=== PATIENT | male | born 1950 | race Caucasian/White ===

== ENCOUNTER 2018-08-13 09:03 | Emergency (ER) | payer OTHER ==
[~2018-08-13] VITALS: Ht 188 cm; Wt 106.6 kg
[2018-08-13] MEDS ORDERED: SODIUM CHLORIDE FLUSH 10 ML SYR INJ PRN (09:15)
[2018-08-13 09:17] LABS: BASOPHILS # (AUTO) 0.1 (0.0-0.1); BASOPHILS % 0.7 % (0.0-1.0); EOSINOPHILS # (AUTO) 0.3 (0.0-0.4); EOSINOPHILS % 4.2 % (0.0-6.0); HEMATOCRIT 43.9 % (38.2-49.6); LYMPHOCYTES # (AUTO) 1.9 (1.0-3.2); LYMPHOCYTES % 27.8 % (18.0-39.1); MEAN CORPUSCULAR HEMOGLOBIN 30.2 pg (28-32); MEAN CORPUSCULAR HGB CONC 34.2 g/dL (31-35); MEAN CORPUSCULAR VOLUME 88.3 fL (81-99); MONOCYTES # (AUTO) 0.7 (0.2-0.8); MONOCYTES % 10.3 % (4.4-11.3); NEUTROPHILS # (AUTO) 3.9 (2.1-6.9); NEUTROPHILS % 56.7 % (38.7-80.0); PLATELET COUNT 143 x10e3/uL (140-360); RED BLOOD COUNT 4.97 x10e6/uL (4.3-5.7); RED CELL DISTRIBUTION WIDTH 13.4 % (11.7-14.4)
[2018-08-13] MEDS ORDERED: AMARYL4 MG PO (09:22)
[2018-08-13] MEDS ORDERED: LANTUS 3ML100 UNITS/ SQ (09:22)
[2018-08-13] MEDS ORDERED: OXYCODONE-ACET1 EAC1 PO (09:22)
[2018-08-13] MEDS ORDERED: VENLAFAXINE H37.5 M2 PO (09:22)
[2018-08-13] MEDS ORDERED: DICYCLOMINE HCL20 MG PO (09:22)
[2018-08-13] MEDS ORDERED: BUTALB-ACETAMI1 EACH PO (09:22)
[2018-08-13] MEDS ORDERED: LOSARTAN POTAS100 MG PO (09:22)
[2018-08-13] MEDS ORDERED: AMLODIPINE BESYL5 MG PO (09:22)
[2018-08-13] MEDS ORDERED: BACLOFEN10 MG PO (09:22)
[2018-08-13] MEDS ORDERED: TAMSULOSIN HCL0.4 MG PO (09:22)
[2018-08-13] MEDS ORDERED: CYMBALTA30 MG PO (09:22)
[2018-08-13] MEDS ORDERED: PANTOPRAZOLE SO40 MG PO (09:22)
[2018-08-13] MEDS ORDERED: METOPROLOL SUCC50 MG PO (09:22)
[2018-08-13 09:34] LABS: PARTIAL THROMBOPLASTIN TIME 24.5 seconds (23.8-35.5)
--- NOTE | 2018-08-13 09:40 | Diagnostic Imaging Report ---
EXAMINATION: CHEST SINGLE (PORTABLE) INDICATION: \S\ERMD ORDER \S\[id number] \S\[id number] \S\Y COMPARISON: None FINDINGS: AP view TUBES and LINES: None. LUNGS: Lungs are well inflated. Linear subsegmental atelectasis in the right lower lobe. There is no evidence of pneumonia or pulmonary edema. PLEURA: No pleural effusion or pneumothorax. HEART AND MEDIASTINUM: The cardiomediastinal silhouette is unremarkable.. BONES AND SOFT TISSUES: Partially visualized hardware overlying the cervical spine. Soft tissues are unremarkable. UPPER ABDOMEN: No free air under the diaphragm. IMPRESSION: Mild subsegmental atelectasis in the right lower lobe. Otherwise, unremarkable chest radiograph. Signed by: Dr. Sanaz Casper M.D. on 08/13/2018 9:35 AM
[2018-08-13 09:41] LABS: ALANINE AMINOTRANSFERASE 30 IU/L (0-55); ALBUMIN 3.6 g/dL (3.5-5.0); ALBUMIN/GLOBULIN RATIO 1.2 (0.8-2.0); ALKALINE PHOSPHATASE 69 IU/L (40-150); ANION GAP 14.2 mmol/L (8-16); BLOOD UREA NITROGEN 15 mg/dL (7-26); BUN/CREATININE RATIO 11 (6-25); CALCIUM 8.8 mg/dL (8.4-10.2); CARBON DIOXIDE 22 mmol/L (22-29); CHLORIDE 106 mmol/L (98-107); CREATINE KINASE 67 IU/L (30-200); CREATININE, SERUM 1.39 mg/dL (0.72-1.25); EST GLOMERULAR FILTRATION RATE 51 ML/MIN (60-); GLUCOSE 252 mg/dL (74-118); LIPASE 23 U/L (8-78); POTASSIUM 4.2 mmol/L (3.5-5.1); SODIUM 138 mmol/L (136-145)
[2018-08-13 09:45] LABS: INR 0.96; PROTHROMBIN TIME 13.7 seconds (11.9-14.5)
== END 2018-08-13 11:23 | disposition home or self-care (01) ==
LOC: ER 09:03
DX: R07.89 Other chest pain (principal); I10 Essential (primary) hypertension; E11.9 Type 2 diabetes mellitus without complications; I25.10 Atherosclerotic heart disease of native coronary artery without angina pectoris; E78.5 Hyperlipidemia, unspecified; I25.2 Old myocardial infarction
CPT/HCPCS: 36415; 71045; 80053; 82550; 82553; 83690; 83735; 83880; 84484; 85025; 85610; 85730; 99284